=== PATIENT | female | born 1990 | race Hispanic/Latino ===

== ENCOUNTER 2024-09-08 11:46 | Emergency (ER) | payer BC ==
[~2024-09-08] VITALS: Ht 160 cm; Wt 68.0 kg
[2024-09-08] MEDS: FAMOTIDINE 20MG TAB PO ONE (12:55)
[2024-09-08] MEDS: DiphenhydrAMINE HCL 25 MG CAPSULE PO ONE (12:55)
[2024-09-08] MEDS: Solu-medROL 125MG VIAL IM ONE (12:55)
[2024-09-08] MEDS ORDERED: LORA10TA7 PO (13:37)
--- NOTE | 2024-09-08 13:37 | ERN ---
General Chief Complaint: Insect Bite Stated Complaint: INSECT BITE Time Seen by MD: 11:48 Time Seen by Midlevel: 11:48 Source: patient History of Present Illness Initial Comments 34-year-old female who presents to the ED due to insect bite. Patient reports she noticed an insect bite upon waking up this morning then proceeding to have itchiness and a rash to the face and chest. Denies any difficulty breathing, fever, or further associated symptoms. Denies significant past medical history. Allergies: Coded Allergies: No Known Allergies (Unverified Allergy, Unknown, 09/08/24) Home Meds Active Scripts Loratadine (Loratadine) 10 Mg Tablet, 1 TAB PO DAILY for allergy symptoms for 30 Days, #30 TAB 0 Refills Prov:GRACIE SHAW 09/08/24 Past Medical History Past Medical History: Asthma, Bronchitis, COPD, Pneumonia Past Surgical History: None Female( History) LMP: Sep 08, 2024 ROS Dictation Constitutional: Negative for fever,chills, and weight loss Eyes: Negative for injury, pain,redness, and discharge ENT: Negative for injury,pain or swelling Cardiovascular: Negative for chest pain, palpitations, and edema Respiratory: Negative for shortness of breath, cough, and wheezing, Abdomen/GI: Negative for abdominal pain, nausea, vomiting, diarrhea, and constipation Back: Negative for injury and pain : Negative for painful urination, bleeding or discharge MS/Extremity: Negative for injury and deformity Skin: Positive for rash Negative for discoloration Neuro: Negative for headache, weakness, numbness, tingling, and seizure Psych: Negative for suicide ideation, homicidal ideation, and hallucinations Physical Exam Physical Exam Dictation General: awake, alert, no acute distress Head/Face: Normocephalic, atraumatic Eyes: normal conjunctiva ENT: oral mucosa moist Neck: Normal range of motion Cardiovascular: RRR, normal S1/S2 Respiratory: CTAB, no respiratory distress, No rales or wheezes Skin: Warm, dry, normal turgor, mild papular erythema noted to the forehead bilateral cheeks and chest MS/Extremity: Pulses equal, no cyanosis, neurovascular intact, FROM Neuro: COAx4, GCS 15, no neurological deficits, normal gait, Psych: Normal behavior, mood, and affect normal MDM MDM: Differential diagnosis: Allergic reaction, insect bite, rash Rationale: 34-year-old female who presents to the ED due to insect bite. Patient reports she noticed an insect bite upon waking up this morning then proceeding to have itchiness and a rash to the face and chest. Denies any difficulty breathing, fever, or further associated symptoms. Denies significant past medical history. Per physical examination mild erythema noted to the chest and face. Patient was administered Benadryl, Solu-Medrol, and famotidine in the ED. On re-examination patient verbalized improvement in symptoms, itching resolved, and erythema resolved. Patient was educated on findings and diagnosis. Advised to follow up with PCP. Return to the ED if any worsening symptoms. Patient verbalized understanding. Patient stable for discharge. There are no social concerns with this patient. I independently interpreted the test that were performed, results were reviewed by me and considered findings on radiology if ordered. Medical management and examination interpretation discussions were had by me with other qualified healthcare professionals as indicated for the patient's care. ED Course Orders Procedure Category Date Status Time Diphenhydramine Hcl PHA 09/08/24 Complete (Benadryl Cap) 12:30 Famotidine 20mg Tab PHA 09/08/24 Complete (Pepcid 20mg Tab) 12:30 Methylprednisolone PHA 09/08/24 Complete Succ 125mg (Solu-Medr 12:30 Current Medications Medications (Trade) Dose Ordered Sig/Melchor Route PRN Reason Start Time Stop Time Status Last Admin Dose Admin Diphenhydramine HCl (BENAdryl CAP) 25 mg ONCE ONCE PO 09/08/24 12:30 09/08/24 12:31 DC 09/08/24 12:55 Famotidine (Pepcid 20mg Tab) 20 mg ONCE ONCE PO 09/08/24 12:30 09/08/24 12:31 DC 09/08/24 12:55 Methylprednisolone Sodium Succinate (Solu-medROL 125MG) 125 mg ONCE ONCE IM 09/08/24 12:30 09/08/24 12:31 DC 09/08/24 12:55 Vital Signs Date Time Temp Pulse Resp B/P (MAP) Pulse Ox O2 Delivery O2 Flow Rate FiO2 09/08/24 13:44 99.0 84 18 121/73 100 Room Air* 0 21 09/08/24 11:47 99.0 86 18 129/70 100 Room Air 0 DX & DISP Disposition: Discharge Departure Impression: Primary Impression: Allergic reaction Condition: Stable Scripts Loratadine (Loratadine) 10 Mg Tablet 1 TAB PO DAILY for allergy symptoms for 30 Days, #30 TAB 0 Refills Prov: GRACIE SHAW 09/08/24 Additional Instructions: Discharge home. Rest. Follow up with primary care DrBriseida in 24 hours. Return to the ER for any acute changes or worsening symptoms. If any medications were prescribed take as directed. Okay to continue home medications unless otherwise discussed during your visit in the emergency room today. Patient was also advised to follow-up with primary care physician in 1 to 2 days for continued monitoring. Referrals: NONE (PCP) I participated in the following activities of this patient's care: For this patient encounter, I reviewed the PA or [employer] SEC[employer]IST documentation, treatment plan, and medical decision making. I did not have [id number] time with this patient. I will sign as the reviewing DrBriseida And agree with the treatment plan and disposition. GRACIE SHAW Sep 08, 2024 13:37
[2024-09-08 13:44] VITALS: BP 121/73; PULSE 84; RESP 18; TEMP 98.9; O2SAT 100
== END 2024-09-08 13:47 | disposition home or self-care (01) ==
LOC: EDH 11:46
DX: T78.40XA Allergy, unspecified, initial encounter (principal); X58.XXXA Exposure to other specified factors, initial encounter
CPT/HCPCS: 99283; 96372; Q0163; J2919

== ENCOUNTER 2024-09-14 19:46 | Emergency (ER) | payer BC ==
[~2024-09-14] VITALS: Ht 160 cm; Wt 69.4 kg
[~2024-09-14 19:46] MED LIST: LORA10TA7 PO
[2024-09-14 19:47] VITALS: TEMP 98.4
[2024-09-14 21:00] LABS: BASOPHILS # (AUTO) 0.06 K/uL (0.00-0.20); BASOPHILS % (AUTO) 0.5 % (0.0-5.0); EOSINOPHILS # (AUTO) 0.71 K/uL (0.00-0.70); EOSINOPHILS % (AUTO) 6.1 % (0.0-8.0); HEMATOCRIT 34.4 % (36-48); IMMATURE GRANULOCYTE ABSOLUTE 0.03 K/uL (0-1); LYMPHOCYTES # (AUTO) 2.7 K/uL (1.0-4.8); LYMPHOCYTES % (AUTO) 22.8 % (21.0-51.0); MEAN CORPUSCULAR HEMOGLOBIN 21.5 pg (27.0-33.0); MEAN CORPUSCULAR HGB CONC 29.4 g/dL (32.0-36.0); MEAN CORPUSCULAR VOLUME 73.2 fL (79-99); MONOCYTES # (AUTO) 0.5 K/uL (0.1-1.0); MONOCYTES % (AUTO) 4.4 % (3.0-13.0); NEUTROPHILS # (AUTO) 7.7 K/uL (1.8-7.7); NEUTROPHILS % (AUTO) 65.9 % (40.0-77.0); PLATELET COUNT (AUTO) 413 K/uL (130-400); RED CELL DISTRIBUTION WIDTH 19.9 % (11.0-15.5); WHITE BLOOD COUNT (AUTO) 11.7 K/uL (4.8-10.8)
[2024-09-14] MEDS: 0.9%NACL 1000ML 1,000 ML IV STA (21:02)
[2024-09-14 21:17] LABS: CREATININE 0.8 mg/dL (0.5-1.0); POTASSIUM 3.5 mmol/L (3.5-5.1)
[2024-09-14 21:32] LABS: INFLUENZA TYPE A Negative For Type A (NEGATIVE); INFLUENZA TYPE B Negative For Type B (NEGATIVE)
[2024-09-14 21:48] VITALS: BP 122/74; PULSE 71; RESP 16; O2SAT 99
--- NOTE | 2024-09-14 22:36 | ERN ---
ED Note History of Present Illness Stated Complaint: DIZZINESS, FLU + Chief Complaint: Flu Symptoms Time Seen by MD: 20:16 Time Seen by Midlevel: 20:20 Dictation: 34-year-old female coming in complaining of dizziness while she was out shopping. Patient also states today she was seen at an urgent care and was diagnosed with flu B and urinary tract infection was placed on Keflex and Tamiflu but has not filled the prescriptions. Patient also states she has a history of anemia due to heavy menses. States she just finished her menses yesterday. Denies having any fever, nausea, vomiting diarrhea. Allergies: Coded Allergies: No Known Allergies (Unverified Allergy, Unknown, 09/08/24) Home Meds Active Scripts Loratadine (Loratadine) 10 Mg Tablet, 1 TAB PO DAILY for allergy symptoms for 30 Days, #30 TAB 0 Refills Prov:GRACIE SHAW 09/08/24 Past Medical History Past Medical History: Asthma, Bronchitis, COPD, Pneumonia Surgical History: None LMP: Sep 07, 2024 Review of System Dictation Constitutional: Negative for fever,chills, and weight loss Eyes: Negative for injury, pain,redness, and discharge ENT: Negative for injury,pain or swelling Cardiovascular: Negative for chest pain, palpitations, and edema Respiratory: Negative for shortness of breath, cough, and wheezing, Abdomen/GI: Negative for abdominal pain, nausea, vomiting, diarrhea, and const ipation Back: Negative for injury and pain : Negative for injury, bleeding and discharge MS/Extremity: Negative for injury and deformity Skin: Negative for rash, and discoloration Neuro: Negative for headache, weakness, numbness, tingling, and seizure co mplaining of dizziness Psych: Negative for suicide ideation, homicidal ideation, and hallucinations Review of Systems: was completed Initial Vital Sign VS Vital Signs Date Time Temp Pulse Resp B/P (MAP) Pulse Ox O2 Delivery O2 Flow Rate FiO2 09/14/24 19:47 98.4 101 20 173/89 100 Room Air 09/14/24 19:59 0 21 Physical Exam Dictation General: awake, alert, NAD Head/Face: Normocephalic, atraumatic Eyes: PERRL, EOMI, vision at baseline ENT: oral cavity clear, TMs clear, no signs of infection Neck: Trachea midline, supple, no nuchal rigidity Cardiovascular: RRR, normal S1/S2, No MRGs, no JVD Respiratory: CTAB, no respiratory distress, No rales or wheezes Abdomen: Soft, non-tender, non-distended, normal bowel sounds, no guarding or rebound. Skin: Warm, dry, normal turgor, no rash MS/Extremity: Pulses equal, no cyanosis, neurovascular intact, FROM Neuro: COAx4, GCS 15, strength 5/5, CN 2-12 intact, normal cerebellar exam, normal gait, Psych: Normal behavior, mood, and affect normal Results (Laboratory/Radiology) Laboratory/Radiology Laboratory Tests Test 09/14/24 20:54 09/14/24 21:00 White Blood Count 11.7 K/uL (4.8-10.8) H Red Blood Count 4.70 MIL/uL (4.00-5.50) Hemoglobin 10.1 g/dL (12.0-16.0) L Hematocrit 34.4 % (36-48) L Mean Corpuscular Volume 73.2 fL (79-99) L Mean Corpuscular Hemoglobin 21.5 pg (27.0-33.0) L Mean Corpuscular Hemoglobin Concent 29.4 g/dL (32.0-36.0) L Red Cell Distribution Width 19.9 % (11.0-15.5) H Platelet Count 413 K/uL (130-400) H Mean Platelet Volume 10.0 fL (7.5-10.5) Immature Granulocyte % (Auto) 0.3 % (0-1) Neutrophils (%) (Auto) 65.9 % (40.0-77.0) Lymphocytes (%) (Auto) 22.8 % (21.0-51.0) Monocytes (%) (Auto) 4.4 % (3.0-13.0) Eosinophils (%) (Auto) 6.1 % (0.0-8.0) Basophils (%) (Auto) 0.5 % (0.0-5.0) Neutrophils # (Auto) 7.7 K/uL (1.8-7.7) Lymphocytes # (Auto) 2.7 K/uL (1.0-4.8) Monocytes # (Auto) 0.5 K/uL (0.1-1.0) Eosinophils # (Auto) 0.71 K/uL (0.00-0.70) H Basophils # (Auto) 0.06 K/uL (0.00-0.20) Absolute Immature Granulocyte (auto 0.03 K/uL (0-1) Nucleated Red Blood Cells 0.0 % (0.0-0.19) Red Blood Cell Morphology See comments Sodium Level 140 mmol/L (136-145) Potassium Level 3.5 mmol/L (3.5-5.1) Chloride Level 102 mmol/L (101-111) Carbon Dioxide Level 30 mmol/L (21-32) Blood Urea Nitrogen 13 mg/dL (7-18) Creatinine 0.8 mg/dL (0.5-1.0) Glomerular Filtration Rate Calc 98 mL/min (>90) Random Glucose 159 mg/dL (70-105) H Total Calcium 9.2 mg/dL (8.5-10.1) Influenza Type A Antigen Negative For Type A Influenza Type B Antigen Negative For Type B Labs Reviewed?: Yes ED Course ED Course Orders Procedure Category Date Status Time Cbc With Differential LAB 09/14/24 Complete 20:48 Basic Metabolic Panel LAB 09/14/24 Complete 20:48 0.9%Nacl 1000ml (Ns PHA 09/14/24 Complete 1000ml) 20:48 Influenza Type A & B, LAB 09/14/24 Complete Rapid 21:00 Current Medications Medications (Trade) Dose Ordered Sig/Melchor Route PRN Reason Start Time Stop Time Status Last Admin Dose Admin Sodium Chloride 1,000 ml @ 1,000 mls/hr Q1H STAT IV 09/14/24 20:48 09/14/24 21:47 DC 09/14/24 21:02 Vital Signs Date Time Temp Pulse Resp B/P (MAP) Pulse Ox O2 Delivery O2 Flow Rate FiO2 09/14/24 21:48 71 16 122/74 99 Room Air* 0 21 09/14/24 19:59 85 16 136/88 99 Room Air* 0 21 09/14/24 19:47 98.4 101 20 173/89 100 Room Air Medical Decision Making MDM MDM: 34-year-old female coming in complaining of dizziness while she was out shopping. Patient also states today she was seen at an urgent care and was diagnosed with flu B and urinary tract infection was placed on Keflex and Tamiflu but has not filled the prescriptions. Patient also states she has a history of anemia due to heavy menses. States she just finished her menses yesterday. Denies having any fever, nausea, vomiting diarrhea.CBC shows leukocytosis of 11.7, microcytic anemia, hemoglobin is 10 and hematocrit is 34. Thrombocythemia. Chemistry unremarkable. Sugar is 159. Serology negative for flu and COVID. Discussed findings with patient. Educated patient all three of her diagnosis could be causing her dizziness. States she feels better after 1 L of NS. Educated she is to follow up with OBGYN for her heavy menses and anemia. Educated to continue taking her Tamiflu and Keflex as prescribed. Educated to return to the ER if any symptoms worsen. Patient verbalized understanding, answered all questions. Differential diagnosis: Anemia, dehydration, electrolyte abnormality, viral syndrome, influenza, COVID Rationale: Tests considered and ordered secondary to shared decision making include: Previous outside records reviewed: Old ER visits. Risk of complication and/or morbidity or mortality of patient management: None Medications-Per medication reconciliation Need for hospitalization: Patient does not meet criteria for hospitalization. Need for emergency major/minor surgery: No There are no social concerns with this patient. Prescription drug management Prescriptions will include symptomatic care Patient's prior external medical records from other ER visits were reviewed by me as indicated. Prior testing and results from previous visits were reviewed. Prior tests were taken into account with medical decision making and resource utilization, independent historian/historians were used to obtain complete medical history. I independently interpreted the test that were performed, results were reviewed by me and considered findings on radiology if ordered. Medical management and examination interpretation discussions were had by me with other qualified healthcare professionals as indicated for the patient's care. DX & DISP Disposition: Discharge Departure Impression: Primary Impression: Dizziness Additional Impression: Anemia Condition: Stable Additional Instructions: Please take the medication that was prescribed to you at the urgent care. Follow up with your OBGYN regarding your heavy menses and anemia. Return to the ER if symptoms worsen. Referrals: SELF,REFERRAL (PCP) Time of Disposition: 22:35 I have reviewed the case, and I agree with, Diagnosis and Plan NELA GOOD NP Sep 14, 2024 22:36
== END 2024-09-14 22:46 | disposition home or self-care (01) ==
LOC: EDH 19:46
DX: R42 Dizziness and giddiness (principal); D64.9 Anemia, unspecified; J45.909 Unspecified asthma, uncomplicated; Z79.899 Other long term (current) drug therapy
CPT/HCPCS: 99283; 96360; 80048; 85025; 87804 ×2; 36415; J7030